=== PATIENT | male | born 1995 | race African-American/Black ===

== ENCOUNTER 2021-01-05 19:27 | Emergency (ER) | payer OTHER ==
[~2021-01-05] VITALS: Ht 170.2 cm; Wt 64.0 kg
[2021-01-05] MEDS ORDERED: IBUPROFEN 600MG TABLET PO ONE (20:15)
[2021-01-05] MEDS ORDERED: IBUP-2028 MT (21:43)
[2021-01-05 22:52] VITALS: BP 140/84
== END 2021-01-05 22:56 | disposition home or self-care (01) ==
LOC: ER 19:27
DX: S83.005A Unspecified dislocation of left patella, initial encounter (principal); J45.909 Unspecified asthma, uncomplicated; V43.62XA Car passenger injured in collision with other type car in traffic accident, initial encounter; Y93.89 Activity, other specified; Y92.488 Other paved roadways as the place of occurrence of the external cause
CPT/HCPCS: 73560; 99283; L1830

== ENCOUNTER 2025-09-08 22:34 | Emergency (ER) | payer MEDICAID, OTHER ==
[~2025-09-08] VITALS: Ht 172.7 cm; Wt 66.0 kg
[~2025-09-08 22:34] MED LIST: IBUP-2028 MT
[2025-09-08 22:39] VITALS: BP 148/82; PULSE 100; RESP 18; O2SAT 98
[2025-09-09 02:00] VITALS: TEMP 98.4
[2025-09-09] MEDS: ACETAMINOPHEN 325MG TABLET PO ONE (02:00)
[2025-09-09] MEDS ORDERED: IBUP-1455 MT (02:26)
[2025-09-09] MEDS: HYDROCODONE/ACETAMINOPHEN 5/325MG TABLET PO ONE (02:48)
[2025-09-09] MEDS: ONDANSETRON 4MG ODT PO ONE (02:49)
== END 2025-09-09 03:04 | disposition home or self-care (01) ==
LOC: ER 22:34
DX: S02.609A Fracture of mandible, unspecified, initial encounter for closed fracture (principal); S09.90XA Unspecified injury of head, initial encounter; Z79.899 Other long term (current) drug therapy; X58.XXXA Exposure to other specified factors, initial encounter; Y93.89 Activity, other specified; Y92.89 Other specified places as the place of occurrence of the external cause; Y99.8 Other external cause status
CPT/HCPCS: 70486; 99284; Q0162

== ENCOUNTER 2025-09-09 03:33 | Emergency (ER) | payer MEDICAID ==
[~2025-09-09] VITALS: Ht 185.4 cm; Wt 73.0 kg
[~2025-09-09 03:33] MED LIST changes: +IBUP-1455 MT
[2025-09-09 03:35] VITALS: BP 148/102; PULSE 107; RESP 16; TEMP 97.8; O2SAT 98
== END 2025-09-09 04:30 | disposition left against medical advice (07) ==
LOC: ER 03:33
DX: R68.84 Jaw pain (principal)
CPT/HCPCS: 99281